=== PATIENT | female | born 1940 | race Caucasian/White ===

== ENCOUNTER → 2018-01-27 | Outpatient (CLI) | payer MEDICARE ==
[~2018-01-27] MED LIST: ATOR10TA15 PO; DOXY100C PO; LISI10TA3 PO; SINE25TA PO
[2018-01-27 11:44] LABS: AUTOMATED NEUTROPHIL # 7.1 TH/MM3 (1.8-7.7); BASOPHIL % 0.2 % (0.0-2.0); EOSINOPHIL # 0.1 TH/MM3 (0-0.4); EOSINOPHIL % 1.4 % (0.0-4.0); HEMATOCRIT 39.6 % (35.0-46.0); HEMOGLOBIN 13.3 GM/DL (11.6-15.3); LYMPH % 17.1 % (9.0-44.0); LYMPHOCYTE # 1.6 TH/MM3 (1.0-4.8); MEAN CELL VOLUME 87.4 FL (80.0-100.0); MEAN CORPUSCULAR HEMOGLOBIN 29.2 PG (27.0-34.0); MEAN CORPUSCULAR HGB CONC 33.4 % (32.0-36.0); MEAN PLATELET VOLUME 8.6 FL (7.0-11.0); MONO % 7.2 % (0.0-8.0); MONOCYTE # 0.7 TH/MM3 (0-0.9); NEUT % 74.1 % (16.0-70.0); PLATELET COUNT 291 TH/MM3 (150-450); RED BLOOD COUNT 4.54 MIL/MM3 (4.00-5.30); RED CELL DISTRIBUTION WIDTH 13.9 % (11.6-17.2); WHITE BLOOD COUNT 9.6 TH/MM3 (4.0-11.0)
[2018-01-27 11:45] LABS: PROTHROMBIN TIME - PATIENT 10.6 SEC (9.8-11.6)
[2018-01-27 11:57] LABS: BICARBONATE 26.9 MEQ/L (21.0-32.0); CALCIUM 9.5 MG/DL (8.5-10.1); CREATININE 0.67 MG/DL (0.50-1.00)
[2018-01-27 12:14] LABS: BILIRUBIN, URINE NEG (NEG); BLOOD, URINE MOD (NEG); GLUCOSE,URINE NEG (NEG); KETONE, URINE NEG (NEG); MUCUS URINE FEW /lpf (OCC); NITRITE,URINE NEG (NEG); SQUAMOUS EPITHELIAL CELL URINE 1 /hpf (0-5); URINE COLOR YELLOW (YELLW/STRAW); URINE LEUKOCYTE ESTERASE NEG (NEG)
--- NOTE | 2018-01-27 13:05 | RADRPT ---
EXAM DATE/TIME: 01/27/2018 11:59 [facility] COMPARISON: No previous studies available for comparison. INDICATIONS : Evaluate for pneumonia, pneumothorax, communicable diseases. Pre-op knee surgery MEDICAL HISTORY : Hypertension. Hypercholesterolemia. SURGICAL HISTORY : Cardiac stent ENCOUNTER: Initial ACUITY: 1 day PAIN SCORE: 0/10 LOCATION: chest FINDINGS: PA and lateral views of the chest demonstrate the lungs to be symmetrically aerated without evidence of mass, infiltrate or effusion. Minimal basal scarring. The cardiomediastinal contours are unremarka ble. Osseous structures are intact. CONCLUSION: 1. No active disease. Minimal basal scarring. Mario Pal MD on January 27, 2018 at 13:01 Board Certified Radiologist. This report was verified electronically.
--- NOTE | 2018-01-28 23:14 | EKG ---
Date Performed: 01/27/2018 Time Performed: 08:57:29 PTAGE: 77 years EKG: Sinus rhythm NORMAL ECG PREVIOUS TRACING : 03/16/2007 05.33 Since the prior tracing, there has been no significant stone DOCTOR: Darnell Mccarty Interpretating Date/Time 01/28/2018 23:14:10
== END ==
LOC: CPRE 07:58
PROVIDERS: ATTEND Orthopaedic Surgery
DX: Z01.812 Encounter for preprocedural laboratory examination (principal); Z01.811 Encounter for preprocedural respiratory examination; Z01.810 Encounter for preprocedural cardiovascular examination; M17.12 Unilateral primary osteoarthritis, left knee
CPT/HCPCS: 36415; 71046; 80048; 81001; 85025; 85610; 93005

== ENCOUNTER 2018-02-08 05:17 | Inpatient (IN) | payer MEDICARE ==
--- NOTE | 2018-01-30 12:58 | MH ---
cc: Carlos Schultz MD DATE OF ADMISSION: 02/08/2018 ADMITTING DIAGNOSIS: Severe osteoarthritis of the left knee; varus deformity, left knee; pain, left knee; gait disturbance; history of Parkinson disease. HISTORY: The patient is a 77-year-old white female who has had more than a 2-year history of knee pain. She had presented to the office in 01/2016, at which time her primary complaint of pain was involving her right knee, for which she had been conforming to conservative management, which had included use of antiinflammatory medication and previous cortisone injection. She had become progressively more symptomatic with the passage of time and subsequently underwent a right total knee arthroplasty in 10/2016 that was completed in the [facility]. The patient did describe some lingering symptoms postoperatively, which were associated with swelling. She did complete a full course of therapy intervention. She returned to the office locally in December of this year reporting that with the passage of time, she was becoming increasingly more symptomatic with similar pain involving her left knee. She had continue to utilize various antiinflammatory medications, which had included both diclofenac and Celebrex as well as receiving additional cortisone injections without appreciable benefit being noted. She also had required use of a cane as an ambulatory aid, but more recently was semi-dependent upon wheelchair as ambulatory assistance. Her current x-ray studies revealed severe degenerative changes with [id number] apposition about the medical compartment associated with a varus deformity of at least 10 degrees magnitude. Findings and treatment options were reviewed with the patient at that time. The pros and cons of continuing with conservative management versus operative intervention that would involved total knee replacement were outlined. Emphasis was made regarding the fact that the decision to proceed with surgery would be left entirely to the patient's discretion. Soheila readily admitted that her degree of incapacitation was of such a nature that she was ready to proceed with surgery as had previously been discussed. In compliance with her wishes, she was scheduled for admission at this time in order that the above be accomplished. PAST MEDICAL HISTORY, HOSPITALIZATIONS AND SURGERIES: In addition to her right total knee arthroplasty have included tonsillectomy, section, colonoscopy, bilateral cataract excision and partial thyroidectomy. She has also undergone previous cardiac catheterization with stent insertion. Her medical illnesses include Parkinson disease and gout. CURRENT MEDICATIONS: Atorvastatin 10 mg daily, doxycycline 100 mg twice daily, lisinopril 10 mg daily and Sinemet 25/100 three times daily. ALLERGIES: THE PATIENT DESCRIBES A DRUG ALLERGY TO KEFLEX, WHICH HAS BEEN ASSOCIATED WITH RASH FORMATION. REVIEW OF SYSTEMS: She wears glasses. Denies headaches, seizure or syncope. Occasional sinus congestion. No epistaxis. Auditory acuity intact. No tinnitus. She has complete dentures. No dysphagia. Has a positive history of pneumonia. No tuberculosis. No angina. She is status post cardiac catheterization. Appetite is good. Frequent constipation. There is a history of gallstones. No ulcers, no hemorrhoids. Prior history of urinary tract infection. No kidney stones. No previous fractures. No psychiatric illness. Her remaining review of systems is unremarkable and noncontributory. FAMILY HISTORY: 56 years. is 72 years of age, in good health. Family history is positive for hypertension, colon cancer and lymphoma. SOCIAL HISTORY: The patient completed a high school education. 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 She was an intermittent user of tobacco, approximately a pack every other day for more than 25 years. She had discontinued smoking in 1985. Ethanol consumption in the form of an occasional glass of wine. PHYSICAL EXAMINATION: VITAL SIGNS: Height 5 feet 6 inches, weight 210 pounds. An alert, oriented and responsive 77-year-old white female, sitting quietly in a wheelchair with no obvious distress. HEAD, EARS, EYES, NOSE AND THROAT: Pupils are equally round and reactive to light. Extraocular movements full. Sclerae clear. External nares clear. External auditory canals clear. Edentulous in the maxillary distribution, semi-dentulous in the mandibular distribution. Mucous membranes pink and moist. Pharynx clear. NECK: Supple. Active range of motion. No significant pain. Carotid pulse palpable bilaterally. Trachea midline. Thyroid without enlargement. LUNGS: Clear to auscultation and percussion. No CVA tenderness. BACK: No discomfort throughout the dorsal lumbar spine. HEART: Regular rhythm. No murmur or gallop. ABDOMEN: Mildly obese, soft, nontender. Bowel sounds present. RECTAL: Per primary care physician. EXTREMITIES: Left knee, there is a generalized fullness about the knee consistent with redundancy of soft tissue, medial joint line tenderness. Apprehension and compression sign negative. A 10-80 degree range of motion with pain at the extremes of mobility. No collateral ligamentous laxity. Sharri test and drawer sign negative. Pivot shift and Elie sign positive for generalized knee pain. Straight leg raising unremarkable at 80 degrees. Distal sensory grossly intact. NEUROLOGIC: Cranial nerves 2-12 grossly intact. Bilateral upper extremities tremor consistent with history of Parkinson disease. IMPRESSION: Severe osteoarthritis of the left knee; varus deformity, left knee; pain, left knee; gait disturbance. PLAN: Left total knee arthroplasty. The nature of the plan, the surgical procedure, the potential complications and risks associated, the expectations of surgery and the consent form were thoroughly reviewed with the patient in the presence of her prior to admission to the hospital. Soheila has indicated her full understanding regarding all of the above and giving consent to proceed with treatment as outlined. Medical evaluation and clearance for surgery will be completed by her primary care physician. Dr. Khalil. Carlos Schultz MD NBS/SB , 12:21 PM , 12:56 PM
[~2018-02-08] VITALS: Ht 167.6 cm; Wt 93.5 kg
[2018-02-08] MEDS ORDERED: BUPIVACAINE PF 0.75% DEX-WATER INJ 2 ML AMP ONE (05:37)
[2018-02-08] MEDS ORDERED: CHLORHEXIDINE GLUCONATE 2 % 1 PACK (2 CLOTHS) TOPICAL PRN (05:45)
[2018-02-08] MEDS ORDERED: LACTATED RINGER'S 1000 ML IV PRN (05:45)
[2018-02-08] MEDS ORDERED: METOPROLOL TARTRATE 25 MG TAB PO PRN (05:45)
[2018-02-08] MEDS ORDERED: POVIDONE IODINE 7.5% SCRUB 118 ML BOTTLE TOPICAL SCH (05:45)
[2018-02-08] MEDS ORDERED: SODIUM CHLORID 0.9% 500 ML IV PRN (05:45)
[2018-02-08] MEDS ORDERED: POVIDONE IODINE 5% (ANTISEPSIS KIT) 4 APPLICATIONS EACH NARE PRN (05:45)
[2018-02-08 05:59] VITALS: PULSE 72
[2018-02-08] MEDS ORDERED: FAT EMULSION 20% INJ 0 ML ONE (06:12)
[2018-02-08] MEDS ORDERED: GENTAMICIN SULFATE 80 MG/2 ML VIAL ONE (06:16)
[2018-02-08] MEDS ORDERED: VANCOMYCIN HCL 1000 MG VIAL ONE ×2 (06:16→07:04)
[2018-02-08] MEDS ORDERED: ACETAMINOPHEN 1000 MG/100 ML 100 ML IV ONE (06:19)
[2018-02-08] MEDS ORDERED: MIDAZOLAM HCL 2 MG/2 ML VIAL ONE (06:20)
[2018-02-08] MEDS ORDERED: PROPOFOL 500 MG/50 ML INJ 50 ML ONE ×2 (06:49→07:52)
[2018-02-08] MEDS ORDERED: VANCOMYCIN 1 GM/200 ML PREMIX ON-CALL IV SCH (07:00)
[2018-02-08] MEDS ORDERED: TRANEXAMIC ACID 1 GM PRIOR TO PROCEDURE IV SCH ×2 (07:00)
[2018-02-08] MEDS ORDERED: VANCOMYCIN 1000 MG/NS 250 ML (for <70 kg) IV SCH ×2 (07:45)
[2018-02-08] MEDS ORDERED: MIDAZOLAM HCL 2 MG/2 ML VIAL IV ONE (07:45)
[2018-02-08] MEDS ORDERED: SUGAMMADEX SODIUM 200 MG/2 ML VIAL IV PUSH ONE (08:01)
[2018-02-08] MEDS ORDERED: DO NOT ADM ANY ANTICOAGULANT DRUGS PRN (09:18)
[2018-02-08] MEDS ORDERED: NALOXONE HCL 0.4 MG/ML AMP IV PUSH PRN (09:30)
[2018-02-08] MEDS ORDERED: ACETAMINOPHEN/HYDROcodone 325 MG/7.5 MG TAB PO PRN (09:30)
[2018-02-08] MEDS ORDERED: Post-op Orders (for Pharmacy) XX ONE (09:30)
[2018-02-08] MEDS ORDERED: ACETAMINOPHEN 325 MG TAB PO PRN (09:30)
[2018-02-08] MEDS ORDERED: TRANEXAMIC ACID INJ 1,000 MG in SODIUM CHLORIDE 0.9% INJ 100 ML IV SCH (09:30)
[2018-02-08] MEDS ORDERED: MISCELLANEOUS PHARMACY INFORMATION XX ONE (09:30)
[2018-02-08] MEDS ORDERED: diphenhydrAMINE HCL 25 MG CAP PO PRN (09:30)
[2018-02-08] MEDS ORDERED: ONDANSETRON HCL 4 MG/2 ML VIAL IVP PRN (09:30)
[2018-02-08] MEDS ORDERED: MORPHINE SULFATE 30 MG/30 ML PCA IV SCH (09:30)
[2018-02-08] MEDS ORDERED: ZOLPIDEM TARTRATE 5 MG TAB PO PRN (09:30)
[2018-02-08] MEDS ORDERED: DOCUSATE SODIUM 100 MG CAP PO PRN (09:30)
--- NOTE | 2018-02-08 09:31 | HHI.FF ---
Face to Face Verification Diagnosis: (1) DJD (degenerative joint disease) of knee Physical Therapy Gait training Knee: Total knee, Protocol: Left, Full weight bearing Left LE Weight Bearing: WB as tolerated Left LE Range of Motion: Active ROM Nursing Dressing Changes: Daily dressing change I have seen patient Soheila Ponce on 02/08/18. My clinical findings support the need for the requested home health care services because: Limited ability to care for self High risk of falls I certify that my clinical findings support that this patient is homebound because: Post-op weakness Unsteady gait/balance Unsafe to leave home unassisted Carlso Schultz MD Feb 08, 2018 09:31
--- NOTE | 2018-02-08 09:58 | MP ---
cc: Carlos Schultz MD DATE OF OPERATION: 02/08/2018 PREOPERATIVE DIAGNOSIS: Severe osteoarthritis of the left knee, varus deformity, left knee, pain, left knee, gait disturbance, history of Parkinson's disease. POSTOPERATIVE DIAGNOSIS: Severe osteoarthritis of the left knee, varus deformity, left knee, pain, left knee, gait disturbance, history of Parkinson's disease. PROCEDURE PERFORMED: Left total knee arthroplasty. SURGEON: Carlos Schultz MD ANESTHESIA: General endotracheal. INDICATIONS: This is a 77-year-old white female with a 2 year history of left knee pain as related to a history of osteoarthritis, but onset and unrelated to injury or unusual activity. The patient had conformed to conservative management in the past including anti-inflammatory medication, but became increasingly more symptomatic with pain. She had undergone a previous right total knee arthroplasty in 10/2016 completed in the [place] area, the patient did describe some lingering symptoms postoperatively that were associated with swelling. She did complete a full course of therapy intervention and returned to the office locally in 12/2017 reporting that with the passage of time, she was becoming increasingly more symptomatic with pain involving her left knee again related to osteoarthritis. She had continued to utilize various anti-inflammatory medications which included both diclofenac and Celebrex as well as receiving cortisone injections without appreciable benefit being noted. She had required the use of a cane as an ambulatory aid, but more recently was semi-dependent upon a wheelchair. Her current x-ray studies revealed severe degenerative changes with [id number] apposition about the medial compartment associated with a varus deformity of at least 10 degrees magnitude. The findings and treatment options were reviewed with the patient at that time. The pros and cons of continuing with conservative management versus operative intervention that would involve a total knee replacement were outlined. The emphasis was made regarding the fact that the decision to proceed with surgery would be left entirely to the patient's discretion. The patient readily admitted that her degree of incapacitation was of such a degree that she was ready to proceed with surgery as had been discussed and in compliance with her wishes, she was scheduled for admission at this time in order that the above be accomplished. FORMAT: Following the induction of satisfactory general anesthesia by endotracheal intubation as completed per the Department of Anesthesia, a tourniquet was established around the proximal portion of the left lower extremity. The extremity proper was isolated with a U-drape thereafter being prepped with Betadine solution and draped into a sterile field in the routine manner. Prior to initiation of the actual procedure, the standard timeout protocol was completed. All parameters were appropriately addressed and confirmed by operating room personnel. The extremity was elevated for approximately 1 minute and the tourniquet, thus inflated to 250 mmHg pressure. A sharp skin incision was initiated midline over the anterior aspect of the knee and developed through underlying subcutaneous tissue with hemostasis maintained by electrocautery. By deepening dissection, the anterior capsule was exposed. A medial capsulotomy completed and the patella subluxed in a lateral orientation. Examination of the joint space revealed severe degenerative changes throughout the medial compartment where there was complete erosion of articular cartilage and subchondral bone exposed. The degenerative process extended through the patellofemoral joint and to a lesser degree the lateral compartment. Significant proliferative synovium was encountered throughout the joint space. A partial synovectomy was accomplished. The articular surface of the patella was resected with power saw. The 3 holed guide was utilized for establishing post-holes. The anterior cruciate ligament, as well as the medial and lateral meniscus structures were sharply excised. A centering hole was placed in the distal aspect of the femur allowing positioning of the intramedullary guide. The distal femoral cutting jig attached and the distal femur resected. AP measurement noted 65 mm sizing to be appropriate. The matching cutting block was positioned. Anterior, posterior and chamfer cuts were completed. The tibial plateau was thereafter subluxed in an anterior orientation allowing positioning of the extramedullary guide. The tibial plateau was resected and measured with 75 mm sizing determined to be satisfactory. A trial reduction followed utilizing a 65 mm anatomic femoral component, a 75 mm tibial base with both 10 and 12 mm bearing inserts trialled. The 12 mm thickness was determined to be the more favorable fit. The knee was readily brought to full extension. There was no laxity to varus and valgus stress at both 0 and 90 degrees flexed posture. Orientation was confirmed as being appropriate with measurement of the pelvic guide through the mechanical access of the knee. A trial reduction followed utilizing a 31 mm standard patellar button. Once again, good tracking was noted with no tendency towards subluxation. All trial components were removed. The remaining portion of the proximal tibia was prepared for insertion of the permanent component. The joint space, being thoroughly lavaged with pulsating antibiotic solution and hemostasis maintained by electrocautery. An autogenous bone plug was inserted into the distal femoral guide hole and thereafter a preparation of Palacos bone cement was utilized in inserting knee components in a sequential fashion, which included a 75 mm fixed cruciate tibial plate to which a 12 mm Vanguard tibial bearing insert was secured with locking nguyen. The 65 mm Vanguard femoral component was firmly seated onto the distal femur, excess cement being removed, the knee was brought to full extension and thereafter the 31 mm standard 3 post-patellar button was attached and maintained in place with patellar clamp while cement hardening was completed. Final range of motion assessment noted good tracking and stability throughout the knee. Irrigation was repeated with hemostasis maintained. Autovac drain tubes were inserted through superior stab wounds. The capsule was repaired with 0 Vicryl suture. The remaining portion of the wound was closed in layers in the routine manner with skin margins being reapproximated with a running subcuticular 3-0 Vicryl suture over which Steri-Strips were applied. Xeroform gauze and a bulky dry sterile dressing were placed. The tourniquet deflated after 57 minutes of tourniquet time, the extremity being supported in a canvas knee splint, anesthesia was discontinued. The patient thus transferred to the hospital bed and returned to the recovery room in satisfactory condition having tolerated her operative procedure well. Estimated blood loss was approximately 100 mL as determined per anesthesia. All implants of the [employer] labor employment associate. MD PANCHO Calhoun/GIANNA , 09:24 AM , 09:57 AM
[2018-02-08] MEDS ORDERED: TRANEXAMIC ACID 1 GM POST-OP IV SCH ×2 (10:00)
[2018-02-08] MEDS ORDERED: ENALAPRILAT 1.25 MG/ML VIAL IV PUSH PRN (10:30)
[2018-02-08] MEDS: DEXT 5%-NACL 0.45% 1000 ML INJ 1,000 ML IV SCH ×2 (10:30→19:32)
--- NOTE | 2018-02-08 10:46 | RADRPT ---
EXAM DATE/TIME: 02/08/2018 09:36 [facility] COMPARISON: No previous studies available for comparison. INDICATIONS : Post op left total knee replacement. MEDICAL HISTORY : None. SURGICAL HISTORY : None. ENCOUNTER: Initial ACUITY: 1 day PAIN SCORE: Non-responsive. LOCATION: Left knee. FINDINGS: AP and lateral views of the knee following arthroplasty reveals a prosthesis in anatomic alignment. F racture is not appreciated. Surgical drain is evident CONCLUSION: Status post total knee arthroplasty. Surinder Marina MD FACR on February 08, 2018 at 10:43 Board Certified Radiologist. This report was verified electronically.
[2018-02-08] MEDS ORDERED: LIDOCAINE HCL 1% PF 5 ML SYRINGE OTHER ONE (12:00)
[2018-02-08] MEDS ORDERED: PROPOFOL 200 MG/20 ML AMP IV ONE (12:00)
[2018-02-08] MEDS ORDERED: ROCURONIUM INJ 50 MG/5 ML SYRINGE IV PUSH ONE (12:00)
[2018-02-08] MEDS ORDERED: KETOROLAC TROMETHAMINE 30 MG/ML (IVP) VIAL IV PUSH ONE (12:00)
[2018-02-08] MEDS ORDERED: ONDANSETRON HCL 4 MG/2 ML VIAL IV ONE (12:00)
[2018-02-08] MEDS ORDERED: LACTATED RINGER'S 1000 ML INJ 1,000 ML IV ONE (12:00)
--- NOTE | 2018-02-08 13:24 | PD.CONS ---
[facility] Request[facility] By Dr. Carlos Schultz Reason for Consult Medical management Primary Care Physician No Primary Care Physician Diagnoses: History of Present Illness This is a 77-year-old female with a history of chronic left knee pain secondary to severe osteoarthritis. Underwent total knee arthroplasty by Dr. Schultz who requested consultation to evaluate and manage multiple medical conditions. Patient has hyperlipidemia controlled on Lipitor, hypertension managed on lisinopril and Parkinson's disease on Sinemet. She has a cane but lately has been using the wheelchair secondary to worsening of left knee pain. She has been recently treated for bronchitis with doxycycline. Anesthesia records reviewed received 1500 mL crystalloid and EBL of 100 mL. All other systems reviewed negative Review of Systems Except as stated in HPI: all other systems reviewed are Neg Past Family Social History Allergies: Coded Allergies: cephalexin (Verified Allergy, Unknown, RASH, 01/27/18) Past Medical History As previously mentioned Past Surgical History Previously mentioned, right total knee arthroplasty, section, cataract surgery and partial thyroidectomy Reported Medications Reported Meds & Active Scripts Active Reported Sinemet (Carbidopa-Levodopa) 25-100 Mg Tab 1 Tab PO Q8HR Lisinopril 10 Mg Tab 10 Mg PO DAILY Doxycycline Hyclate 100 Mg Cap 100 Mg PO BID Atorvastatin (Atorvastatin Calcium) 10 Mg Tab 10 Mg PO HS Family History Hypertension and colon cancer Social History Remote tobacco use. Occasional wine use. Lives with her Physical Exam Vital Signs Vital Signs Date Time Temp Pulse Resp B/P (MAP) Pulse Ox O2 Delivery O2 Flow Rate FiO2 02/08/18 10:46 15 02/08/18 10:30 97.5 60 15 155/81 (105) 95 Nasal Cannula 3 02/08/18 10:15 59 15 151/80 (103) 94 Nasal Cannula 3 02/08/18 10:00 58 15 147/78 (101) 94 Nasal Cannula 3 02/08/18 09:45 57 14 146/80 (102) 99 Simple Mask 6 02/08/18 09:30 59 12 135/70 (91) 98 Simple Mask 6 02/08/18 09:18 97.7 57 10 133/63 (86) 100 Simple Mask 7 02/08/18 05:59 72 02/08/18 05:58 97.7 79 18 152/77 (102) 98 Physical Exam GENERAL: This is a well-nourished, well-developed patient, in no apparent distress. SKIN: No rashes, ecchymoses or lesions. Cool and dry. HEAD: Atraumatic. Normocephalic. No temporal or scalp tenderness. EYES: Pupils equal round and reactive. Extraocular motions intact. No scleral icterus. No injection or drainage. ENT: Nose without bleeding, purulent drainage or septal hematoma. Throat without erythema, tonsillar hypertrophy or exudate. Uvula midline. Airway patent. NECK: Trachea midline. No JVD or lymphadenopathy. Supple, nontender, no meningeal signs. CARDIOVASCULAR: Regular rate and rhythm without murmurs, gallops, or rubs. RESPIRATORY: Clear to auscultation. Breath sounds equal bilaterally. No wheezes , rales, or rhonchi. GASTROINTESTINAL: Abdomen soft, non-tender, nondistended. No guarding. MUSCULOSKELETAL: Extremities without clubbing, cyanosis but with trace right leg edema. Left lower extremity with dry dressing on a CPM NEUROLOGICAL: Awake and alert. Cranial nerves II through XII intact. Motor and sensory grossly within normal limits. Five out of 5 muscle strength in all muscle groups. Normal speech. Laboratory Preop records reviewed hemoglobin of 13 white count of 9.6 and platelet count 291 INR 1 BMP remarkable for a sodium 140 potassium 3.7 creatinine 0.67 urinalysis unremarkable chest x-ray negative for acute cardiopulmonary disease EKG tracing reviewed showing sinus rhythm. Assessment and Plan Assessment and Plan This is a 77-year-old female with a history of chronic left knee pain secondary to severe osteoarthritis. Underwent total knee arthroplasty by Dr. Schultz who requested consultation to evaluate and manage multiple medical conditions. Left knee osteoarthritis status post arthroplasty. 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 Check hemoglobin and hematocrit in the morning to monitor for anemia secondary to blood loss Hyperlipidemia controlled on Lipitor Hypertension managed on lisinopril. Continue to monitor Parkinson's disease on Sinemet. Will continue. Fall precautions. Discussed Condition With Patient Sanford Chu MD Feb 08, 2018 13:24
[2018-02-08] MEDS: PCA - TOTAL MG MORPHINE DELIVERED PER SHIFT SCH ×2 (14:00→22:00)
[2018-02-08 14:04] VITALS: BP 108/51; PULSE 101; RESP 15; TEMP 95.6; O2SAT 95
[2018-02-08] MEDS: CARBIDOPA/LEVODOPA 25 MG/100 MG TAB PO SCH ×2 (15:40→21:25)
[2018-02-08] MEDS: VANCOMYCIN INJ 1,000 MG in SODIUM CHLOR 0.9% 250 ML INJ 250 ML IV SCH (19:32)
[2018-02-08] MEDS: ATORVASTATIN 10 MG TAB PO SCH (20:21)
[2018-02-08 20:28] VITALS: BP 110/54; PULSE 68; RESP 18; TEMP 96.7; O2SAT 93
[2018-02-09] VITALS (7 sets, daily range): BP systolic 116–148; BP diastolic 56–63; PULSE 74–86; RESP 17–18; TEMP 95.7–99.3; O2SAT 93–97
[2018-02-09] MEDS: DEXT 5%-NACL 0.45% 1000 ML INJ 1,000 ML IV SCH ×3 (02:00→18:00)
[2018-02-09] MEDS: ACETAMINOPHEN/HYDROcodone 325 MG/7.5 MG TAB PO PRN ×4 (03:55→20:17)
[2018-02-09] MEDS: PCA - TOTAL MG MORPHINE DELIVERED PER SHIFT SCH ×2 (06:00→22:00)
[2018-02-09] MEDS: CARBIDOPA/LEVODOPA 25 MG/100 MG TAB PO SCH ×3 (06:00→20:17)
[2018-02-09] MEDS ORDERED: HYDR-3580 PO (06:01)
[2018-02-09] MEDS ORDERED: ASPI-183 PO ×2 (06:01→06:07)
[2018-02-09] MEDS ORDERED: WALKER WHEELS/F1 MIS (06:04)
[2018-02-09 06:56] LABS: HEMATOCRIT 32.8 % (35.0-46.0); HEMOGLOBIN 10.9 GM/DL (11.6-15.3)
[2018-02-09] MEDS ORDERED: BISACODYL 10 MG SUPP RECTAL PRN (07:30)
[2018-02-09] MEDS ORDERED: MAGNESIUM HYDROXIDE SUSP 30 ML CUP PO ONE (07:30)
[2018-02-09] MEDS: LISINOPRIL 10 MG TAB PO SCH (08:26)
[2018-02-09] MEDS: RIVAROXABAN 10 MG TAB PO SCH (08:26)
[2018-02-09] MEDS: VANCOMYCIN INJ 1,000 MG in SODIUM CHLOR 0.9% 250 ML INJ 250 ML IV SCH (08:28)
--- NOTE | 2018-02-09 10:10 | HHI.PR ---
Subjective Remarks F/u ortho surgery. 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 Seen with daughter dw RN Objective Vitals Vital Signs Date Time Temp Pulse Resp B/P (MAP) Pulse Ox O2 Delivery O2 Flow Rate FiO2 02/09/18 08:00 97.3 74 17 118/60 (79) 93 02/09/18 06:00 18 02/09/18 03:52 97.2 81 17 133/58 (83) 94 02/09/18 00:06 96.6 86 18 140/59 (86) 93 02/08/18 22:00 19 02/08/18 21:47 21 02/08/18 20:28 96.7 68 18 110/54 (72) 93 02/08/18 14:04 95.6 101 15 108/51 (70) 95 02/08/18 13:30 97.5 61 15 108/56 (73) 96 Nasal Cannula 2 02/08/18 13:00 60 15 120/60 (80) 95 Nasal Cannula 2 02/08/18 12:00 60 15 130/75 (93) 97 Nasal Cannula 3 02/08/18 11:30 61 15 135/76 (95) 97 Nasal Cannula 3 02/08/18 11:00 59 15 147/86 (106) 96 Nasal Cannula 3 02/08/18 10:46 15 02/08/18 10:30 97.5 60 15 155/81 (105) 95 Nasal Cannula 3 02/08/18 10:15 59 15 151/80 (103) 94 Nasal Cannula 3 I/O 02/08/18 02/08/18 02/08/18 02/09/18 02/09/18 02/09/18 07:00 15:00 23:00 07:00 15:00 23:00 Intake Total 1500 ml 1496 ml 537 ml Output Total 100 ml 35 ml Balance 1400 ml 1496 ml 502 ml Intake Oral 480 ml 120 ml IV Total 1016 ml 417 ml Other 1500 ml Output Drainage Total 35 ml Estimated Blood Loss 100 ml # Voids 0 2 2 # Bowel Movements 0 0 Result Diagram: 02/09/18 0615 Imaging Last Impressions Knee X-Ray 02/08/18 09 Signed Impressions: Service Date/Time: Thursday, February 08, 2018 09:36 - CONCLUSION: Status post total knee arthroplasty. Surinder Marina MD FACR Objective Remarks GENERAL: This is a well-nourished, well-developed patient, in no apparent distress. SKIN: No rashes, ecchymoses or lesions. Cool and dry. CARDIOVASCULAR: Regular rate and rhythm without murmurs, gallops, or rubs. RESPIRATORY: Clear to auscultation. Breath sounds equal bilaterally. No wheezes , rales, or rhonchi. GASTROINTESTINAL: Abdomen soft, non-tender, nondistended. No guarding. MUSCULOSKELETAL: Extremities without clubbing, cyanosis but with trace right leg edema. Left lower extremity with dry dressing on a CPM NEUROLOGICAL: Drowsy easily arousable. Cranial nerves II through XII intact. Motor and sensory grossly within normal limits. Five out of 5 muscle strength in all muscle groups. Normal speech. A/P Assessment and Plan This is a 77-year-old female with a history of chronic left knee pain secondary to severe osteoarthritis. Underwent total knee arthroplasty by Dr. Schultz who requested consultation to evaluate and manage multiple medical conditions. Left knee osteoarthritis status post arthroplasty. Stable continue postoperative care with physical therapy, wound care, pain management with Lortab and morphine PASTE WORKER counseled regarding narcotics and DVT prophylaxis with Xarelto. Encephalopathy likely toxic from narcs. Dc MS PASTE WORKER. Pt has Lortab Anemia 2/2 acute blood loss. Hemodynamically stable Hyperlipidemia controlled on Lipitor Hypertension managed on lisinopril. Continue to monitor Parkinson's disease on Sinemet. Will continue. Fall precautions. Sanford Chu MD Feb 09, 2018 10:10
[2018-02-09] MEDS: ATORVASTATIN 10 MG TAB PO SCH (20:16)
[2018-02-10 00:30] VITALS: BP 123/50; PULSE 75; RESP 18; TEMP 98.5; O2SAT 95
[2018-02-10] MEDS: ACETAMINOPHEN/HYDROcodone 325 MG/7.5 MG TAB PO PRN ×3 (00:46→11:26)
[2018-02-10] MEDS: DEXT 5%-NACL 0.45% 1000 ML INJ 1,000 ML IV SCH ×2 (02:00→10:00)
[2018-02-10] MEDS: PCA - TOTAL MG MORPHINE DELIVERED PER SHIFT SCH (06:00)
[2018-02-10] MEDS: CARBIDOPA/LEVODOPA 25 MG/100 MG TAB PO SCH (06:01)
--- NOTE | 2018-02-10 06:44 | MD ---
cc: Carlos Schultz MD, Anthony E DO DATE OF DISCHARGE: 02/11/2018 ADMITTING DIAGNOSIS: Severe osteoarthritis of the left knee, varus deformity, left knee pain, left knee, gait disturbance and a history of Parkinson's disease. DISCHARGE DIAGNOSES: Severe osteoarthritis of the left knee, varus deformity, left knee pain, left knee, gait disturbance and a history of Parkinson's disease. HISTORY OF PRESENT ILLNESS: This is a 77-year-old white female with a 2 year history of left knee pain as related to osteoarthritis. She had conformed to conservative management in the past, but became increasingly more symptomatic with pain. She had completed a right total knee arthroplasty in 10/2016 in the [facility] with some lingering symptoms experienced postoperatively. With the passage of time, she became progressively more symptomatic with pain about her left knee as related to her arthritic condition. Her symptoms were unresponsive to continued conservative management for which she was also requiring the use of a cane and wheelchair as ambulatory aids. Her more current x-ray studies had revealed severe degenerative changes with [id number] apposition about the medial compartment, associated with a varus deformity of at least 10 degrees magnitude. Findings and treatment options were reviewed with the patient at that time. The pros and cons of continuing with conservative management versus operative intervention that would involve total knee arthroplasty were outlined in detail. Emphasis was made regarding the fact that the decision to proceed with surgery would be left entirely to the patient's discretion. The patient readily admitted that her symptoms had progressed to the point in time, where she desired to proceed accordingly and in compliance with her wishes, she was scheduled for admission at this time. For additional information and details with regard to her history and physical examination, interested parties would be directed to the admitting documentation. Her physical examination at the time of admission noted a generalized fullness about the left knee consistent with redundancy of soft tissue, and medial joint line tenderness. Apprehension and compression sign negative. A 10-80 degree range of motion with pain at the extreme of mobility. No collateral ligamentous laxity. Sharri test and drawer sign negative. Pivot shift and Elie sign Positive for generalized pain. Straight leg raising unremarkable at 80 degrees. Distal sensory grossly intact. HOSPITAL COURSE: Prior to admission to the hospital, the patient had undergone medical evaluation and clearance for surgery with her primary care physician, Dr. Khalil. She was taken to the operating room on 02/08/2018 and on that date underwent a left total knee arthroplasty completed in an uncomplicated manner. The patient was noted to have tolerated her operative procedure well. Her postoperative course was stable thereafter. She was progressively mobilized under the guidance of physical therapy making slow progress with regards to her initial rehabilitation. Hemoglobin and hematocrit assessment postoperatively was 10.9 and 32.8 respectively. Labor And Delivery Nurse was consulted to assist with discharge planning. Recommendation was made to proceed with rehab placement for which plans were finalized in this regard. She was found to be an appropriate candidate for the [facility] and pending medical clearance, she was scheduled for transfer on the third postoperative day, at which time she was making slow, but steady progress with regards to her initial rehabilitation program. She was scheduled to be seen in office followup in approximately 4 weeks. CONDITION AT THE TIME OF DISCHARGE: Stable and prognosis favorable. DISCHARGE MEDICATIONS: Include hydrocodone 5/325 #60, aspirin 325 mg 1 tab twice daily for 3 weeks, #40. Carlos Schultz MD NBS/DL , 06:24 AM , 06:41 AM
[2018-02-10 08:00] VITALS: BP 117/58; PULSE 71; RESP 18; TEMP 96.2; O2SAT 95
[2018-02-10] MEDS: LISINOPRIL 10 MG TAB PO SCH (10:09)
[2018-02-10] MEDS: RIVAROXABAN 10 MG TAB PO SCH (10:10)
[2018-02-10 12:00] VITALS: BP 112/76; PULSE 87; RESP 18; TEMP 97.7; O2SAT 98
== END 2018-02-10 12:00 | DRG 469 ==
LOC: HSDI 05:17 → N06A 13:55
PROVIDERS: ADMIT Orthopaedic Surgery; ATTEND Orthopaedic Surgery
PROC: 3E0T3BZ Introduction of Anesthetic Agent into Peripheral Nerves and Plexi, Percutaneous Approach (ICD-10-PCS; 2018-02-08)
PROC: 0SRD0J9 Replacement of Left Knee Joint with Synthetic Substitute, Cemented, Open Approach (ICD-10-PCS; principal; 2018-02-08 06:46)
DX: M17.12 Unilateral primary osteoarthritis, left knee (principal); G92 Toxic encephalopathy; D62 Acute posthemorrhagic anemia; G20 Parkinson's disease; I10 Essential (primary) hypertension; M21.162 Varus deformity, not elsewhere classified, left knee; E78.5 Hyperlipidemia, unspecified; I25.10 Atherosclerotic heart disease of native coronary artery without angina pectoris; G89.29 Other chronic pain; E66.9 Obesity, unspecified; Z87.891 Personal history of nicotine dependence; Z96.651 Presence of right artificial knee joint; Z68.33 Body mass index [BMI] 33.0-33.9, adult; T40.605A Adverse effect of unspecified narcotics, initial encounter; Y92.239 Unspecified place in hospital as the place of occurrence of the external cause; Z95.5 Presence of coronary angioplasty implant and graft
CPT/HCPCS: 73560; 85014; 85018; 86850; 86900; 86901; 88305; 94150; C1776; J0131; J1580; J1885; J2250; J2270; J2405; J3010; J3370; J7050; J7120; L1830